=== PATIENT | male | born 1975 | race Caucasian/White ===

== ENCOUNTER → 2021-11-25 10:15 | Outpatient (BNVA) | payer SELFPAY | PROVIDERS: PCP Pediatrics; Visit Provider Physician Assistant Medical | DX: Z02.1 Encounter for pre-employment examination (principal) ==

== ENCOUNTER 2022-08-26 05:55 | Outpatient (REF) | payer OTHER, SELFPAY | END 2022-08-26 05:56 | disposition home or self-care (01) | LOC: HO.LAB 05:55 | PROVIDERS: PCP Pediatrics; Visit Provider Pediatrics | DX: Z00.00 Encounter for general adult medical examination without abnormal findings (principal); Z12.5 Encounter for screening for malignant neoplasm of prostate; Z20.2 Contact with and (suspected) exposure to infections with a predominantly sexual mode of transmission; R63.5 Abnormal weight gain | CPT/HCPCS: 36415; 80048; 80061; 80076; 81001; 84153; 84443; 85025; 86704; 86706; 86709; 86803; 87340 ==

== ENCOUNTER 2022-08-28 09:19 | Day surgery (SDC) | payer OTHER, SELFPAY ==
--- NOTE | 2022-08-27 09:25 | HO.ANESPROP2 ---
Documented by User: Lesly Kirkland NP 08/27/22 09:26 HPI - Anesthesia Eval Consult details Narrative: 47yo M for Colonoscopy [facility] Surgical History Surgical History (Updated 08/27/22 @ 07:41 by Sabi Green) H/O colonoscopy No pertinent past surgical history Social History Social History Patient Tobacco Use Status: Never used Tobacco Are you DNR?: No Advance Directives: No Advance Directives Information Provided: Yes Meds Allergies Allergy/AdvReac Type Severity Reaction Status Date / Time penicillin G Allergy Unknown facial Verified 05/19/18 00:00 flushing Penicillins [PENICILLINS] Allergy Unknown RASH Unverified 11/09/19 16:46 Sulfa (Sulfonamide Allergy Unknown upset Verified 05/19/18 00:00 Antibiotics) stomach, nightmares Home Medications Medication Instructions Recorded Confirmed Last Taken Type fluoxetine 08/27/22 08/27/22 Unknown History Exam Exam Date and Time: August 27, 2022924 Pertinent Lab Results Pertinent Lab Results: Laboratory Tests 08/26/22 08/26/22 06:11 06:11 WBC 6.5 Hgb 14.5 Hct 41.7 L Plt Count 267 Sodium 142 Potassium 4.0 Chloride 109 H Carbon Dioxide 24 BUN 17 H Creatinine 0.91 Assessment and Plan Assessment Anesthesia Assessment: Chart Reviewed Documented by User: Myles Ingram MD 08/28/22 11:19 [facility] Family History Family history of problems with anesthesia: No Surgical History Surgical History (Updated 08/27/22 @ 07:41 by Sabi Green) H/O colonoscopy No pertinent past surgical history History of Problems with Anesthesia: No Social History Social History Patient Tobacco Use Status: Never used Tobacco Are you DNR?: No Advance Directives: No Advance Directives Information Provided: Yes Meds Allergies Allergy/AdvReac Type Severity Reaction Status Date / Time penicillin G Allergy Unknown facial Verified 05/19/18 00:00 flushing Penicillins [PENICILLINS] Allergy Unknown RASH Unverified 11/09/19 16:46 Sulfa (Sulfonamide Allergy Unknown upset Verified 05/19/18 00:00 Antibiotics) stomach, nightmares Home Medications Medication Instructions Recorded Confirmed Last Taken Type fluoxetine 08/27/22 08/27/22 Unknown History Exam Airway Mallampati Class: I TM Dist: <=3cm Neck ROM: Full Loose/Missing/Broken Teeth: No Heart: ok Lungs: ok Assessment and Plan Assessment Anesthesia Assessment: Anesthesia Plan Discussed Final Anesthetic Review Family History of Problems with Anesthesia: No History of Problems with Anesthesia: No NPO: Yes ASA Class: I Final Preanesthetic Review: No Changes in Pt Med Stat, Meds/Allgs Chart Reviewed, Consent Obtained/Reviewed and Anes Risks/Benef Reviewed Patient Risk: Low Procedure Risk: Low Anesthetic Plan Anesthetic Plan: MAC: and Agree w/ Assess. and Plan Disposition: Standard PACU
[2022-08-28 09:24] VITALS: BP 135/82; PULSE 80; RESP 18; TEMP 36.1; O2SAT 97; BMI 28.6
--- NOTE | 2022-08-28 11:56 | PM.OP ---
Brief Operative Note Date of Service: 08/28/22 Pre-op diagnosis: Screening Post-op diagnosis: other (Diverticulosis, Internal hemorrhoids) Procedure: Colonoscopy to the cecum and TI Surgeon: Chino Amaya Anesthesia: MAC Was an Tire Man used for this Procedure?: No Estimated blood loss (mL): 0 Pathology: none sent Condition: stable Disposition: PACU
[2022-08-28 11:59] VITALS: BP 86/45; PULSE 68; RESP 19; TEMP 36.5; O2SAT 97
--- NOTE | 2022-08-28 12:12 | OP_ITS ---
DATE OF SERVICE: 08/28/2022 SURGEON: Chino Amaya MD INDICATIONS: The patient presents for evaluation of colorectal cancer screening and family history of colon cancer. Full consent has been obtained from him for this, including risks of bleeding and perforation. PREOPERATIVE DIAGNOSIS: Colorectal cancer screening and family history of colon cancer. POSTOPERATIVE DIAGNOSIS: PROCEDURE PERFORMED: Colonoscopy to the cecum and terminal ileum. ESTIMATED BLOOD LOSS: COMPLICATIONS: ANESTHESIA: Monitored anesthesia care. ASSISTANTS: SPECIMENS: POSTOPERATIVE DIAGNOSES: Colorectal cancer screening and family history of colon cancer, occasional sigmoid diverticulosis, and small internal hemorrhoids. DESCRIPTION OF PROCEDURE: The patient was placed in the left lateral decubitus position. The digital rectal exam revealed no abnormalities. The Olympus video pediatric colonoscope was entered into the rectum and advanced easily to the cecum. Once in the cecum, I did identify normal-appearing cecal pouch with appendiceal orifice and a normal-appearing ileocecal valve. The terminal ileum was cannulated and appeared normal. The scope was withdrawn back in the colon. The entire cecum and ileocecal valve appeared normal. The scope was slowly withdrawn assessing all mucosal surfaces carefully. Preparation was excellent. I did not visualize any sign of polyps, colitis, nor angiodysplasia. There were occasional diverticula in the sigmoid colon. In the rectum, scope was retroflexed visualizing small internal hemorrhoids, but no other pathology. The rectal mucosa appeared normal. The scope was straightened and withdrawn from the patient. He tolerated the procedure well and was returned to the recovery area in stable condition. IMPRESSION: 1. Occasional sigmoid diverticulosis. 2. Internal hemorrhoids. PLAN: Given his family history, I would recommend a followup colonoscopy in 5 years. He will otherwise see me on a p.r.n. basis. MD ROBERT Boss/PALOMA / [id number]
[2022-08-28 12:13] VITALS: BP 104/56; PULSE 72; RESP 16; TEMP 36.4; O2SAT 97
[2022-08-28 12:19] VITALS: BP 104/57; RESP 104; O2SAT 97
== END 2022-08-28 12:45 | disposition home or self-care (01) ==
PROVIDERS: PCP Pediatrics; Visit Provider Internal Medicine
PROC: 0DJD8ZZ Inspection of Lower Intestinal Tract, Via Natural or Artificial Opening Endoscopic (ICD-10-PCS; CPT 45378; principal; 2022-08-28 10:40)
DX: Z12.11 Encounter for screening for malignant neoplasm of colon (principal); Z80.0 Family history of malignant neoplasm of digestive organs; K57.30 Diverticulosis of large intestine without perforation or abscess without bleeding; K64.8 Other hemorrhoids; Z79.899 Other long term (current) drug therapy; Z88.0 Allergy status to penicillin; Z88.2 Allergy status to sulfonamides
CPT/HCPCS: 45378

== ENCOUNTER 2023-11-27 09:56 | Outpatient (REF) | payer BC, SELFPAY ==
[2023-11-27 10:23] LABS: MANUAL DIFF FLAG NO
[2023-11-27 10:50] LABS: Basophils Absolute Auto 0.1 X10*3/uL (0.0-0.2); Basophils Percent Auto 1.7 % (0-2); Eosinophils Absolute Auto 0.4 X10*3/uL (0.0-0.4); Eosinophils Percent Auto 5.7 % (0-4); Hematocrit 44.1 % (42.0-52.0); Imm Gran Abs Auto 0.01 X10*3/uL (0.00-0.03); Imm Gran Pct Auto 0.1 % (0.0-0.4); Lymphocytes Absolute Auto 3.1 X10*3/uL (1.2-4.9); Lymphocytes Percent Auto 44.2 % (20-40); Mean Corpuscular Hemoglobin 29.8 pg (27.0-33.0); Mean Corpuscular Volume 87.5 fL (80.0-98.0); Mean Platelet Volume 9.5 fL (9.4-12.4); Monocytes Absolute Auto 0.5 X10*3/uL (0.1-1.2); Monocytes Percent Auto 7.5 % (2-11); Neutrophils Absolute Auto 2.8 x10*3/uL (2.0-8.3); Neutrophils Percent Auto 40.8 % (45-73); Platelet Count 278 X10*3/uL (160-400); Red Blood Count 5.04 X10*6/uL (4.60-5.80); Red Cell Distribution Width 13.2 % (11.0-16.0)
[2023-11-27 12:04] LABS: Alanine Aminotransferase 76 U/L (0-40); Albumin Level 4.1 g/dL (3.5-5.0); Alkaline Phosphatase 97 U/L (39-117); Anion Gap 10 (12-20); Aspartate Amino Transferase 40 U/L (5-37); Bilirubin Direct 0.2 mg/dL (0.0-0.5); Bilirubin Total 0.4 mg/dL (0.0-1.0); Blood Urea Nitrogen 16 mg/dL (9-16); Calcium 9.4 mg/dL (8.4-10.2); Carbon Dioxide 28 mmol/L (22-29); Chloride 107 mmol/L (96-108); Cholesterol 205 mg/dL (<200); Estimated Glomerular Filt Rate > 60; Glucose Fasting 101 mg/dL (60-99); HDL Cholesterol 40 mg/dL (>40); LDL Cholesterol Calculated 143 mg/dL (<100); Potassium 4.5 mmol/L (3.3-5.1); Sodium 140 mmol/L (135-145); Total Protein 7.3 g/dL (6.5-8.0); Triglycerides 113 mg/dL (<150)
[2023-11-27 12:53] LABS: Prostate Specific Antigen 0.41 ng/mL (<0.05-4.0)
== END 2023-11-27 09:57 | disposition home or self-care (01) ==
LOC: HO.LAB 09:56
PROVIDERS: PCP Pediatrics; Visit Provider Pediatrics
DX: Z00.00 Encounter for general adult medical examination without abnormal findings (principal); Z23 Encounter for immunization; R35.1 Nocturia; Z12.5 Encounter for screening for malignant neoplasm of prostate
CPT/HCPCS: 36415; 80048; 80061; 80076; 84153; 85025

== ENCOUNTER 2023-12-04 08:32 | Outpatient (REF) | payer BC, SELFPAY ==
[2023-12-04 10:11] LABS: Iron 132 mcg/dL (45-160); Lipase 36 U/L (8-78); Percent Iron Saturation 41 % (15-50); Total Iron Binding Capacity 323 mcg/dL (228-428); Unsaturated Iron Binding 191 ug/dL
[2023-12-04 10:26] LABS: HBS Num1 0.18 mIU/mL (0-7.99); HBsAGNum1 0.36 S/CO (0.00-0.99); Hepatitis B Surface Antigen Negative (Negative); ~HepC Num1 0.13 S/CO (0.00-0.79); ~Hepatitis B Surface Antibody NONREACTIVE (Nonreactive); ~Hepatitis C Antibody Nonreactive (Nonreactive)
[2023-12-04 10:31] LABS: TSH reflex Free T4 2.74 uIU/mL (0.32-4.0)
[2023-12-04 11:16] LABS: Hepatitis A Antibody IgM 0.23 Index (0-0.79); ~Hepatitis A Antibody IgM Nonreactive (Nonreactive)
== END 2023-12-04 08:33 | disposition home or self-care (01) ==
LOC: HO.LAB 08:32
PROVIDERS: PCP Pediatrics; Visit Provider Pediatrics
DX: R74.01 Elevation of levels of liver transaminase levels (principal)
CPT/HCPCS: 36415; 83540; 83690; 84443; 86706; 86709; 86803; 87340

== ENCOUNTER 2023-12-10 08:40 | Outpatient (REF) | payer BC, SELFPAY ==
--- NOTE | ~2023-12-10 | US_ITS ---
EXAMINATION: US ABDOMEN COMPLETE CLINICAL INFORMATION: Elevated liver transaminases. COMPARISON: Ultrasound dated June 28, 2006 TECHNIQUE: Real-time imaging of the abdominal viscera using grayscale and color Doppler technique.. FINDINGS: Submitted for interpretation on January 25, 2024. Liver has coarse echotexture. There is no measurements. No gross solid or cystic lesion. The main portal vein is patent with normal hepatopedal flow direction. Gallbladder is fluid-filled. No pericholecystic fluid collection or gallbladder wall thickening. Common bile duct measures 3 mm. No peripancreatic fluid collection. Right kidney measures 10 cm. Normal echotexture. Normal renal cortical thickness. No hydronephrosis. No solid or cystic lesion. Normal flow on color Doppler interrogation of the renal hilum. Left kidney measures 10 cm. Normal echotexture. Normal renal cortical thickness. No hydronephrosis. No solid or cystic lesion. Normal flow on color Doppler interrogation of the renal hilum. Spleen measures 10 cm. No ascites. US/US abdomen complete IMPRESSION: Limited evaluation of the liver. Recommend dedicated IV contrast enhanced MRI. No cholelithiasis. No hydronephrosis. No ascites. Electronically signed by: Skinny Abdul MD 01/25/2024 03:47 PM EST
== END 2023-12-10 08:41 | disposition home or self-care (01) ==
LOC: HO.US 08:40
PROVIDERS: PCP Pediatrics; Visit Provider Pediatrics
DX: R74.01 Elevation of levels of liver transaminase levels (principal)
CPT/HCPCS: 76700

== ENCOUNTER → 2023-12-10 08:41 | Outpatient (BNV) | payer BC, SELFPAY | PROVIDERS: PCP Pediatrics; Visit Provider Radiology Diagnostic Radiology | DX: R74.01 Elevation of levels of liver transaminase levels (principal) | CPT/HCPCS: 76700 ==

== ENCOUNTER 2024-02-05 09:01 | Outpatient (REF) | payer BC, SELFPAY ==
--- OUTSIDE RECORDS SUMMARY | 2024-02-05 09:03 | XMS_ITS ---
Author Organization [facility] Address [address] [place] [address] Care Team Providers Care State Assessed Properties Director Name Role Phone Edis ALEXANDER, Chelsea Primary Care Provider Chino Parrish Unavailable [phone] REASON FOR VISIT screening,fam hx colon ca PROBLEMS Problem Type ICD Code Onset Dates Problem Status W/U Status Risk SNOMED Code Notes Problem Diverticulosis of large intestine without perforation or abscess without bleeding (K57.30) Active confirmed Diverticul ar disease of colon (154757441) Encounters Encounter Location Date Provider Diagnosis [facility] Outpatient [address] [place], [place] [id number] 08/28/2022 Chino Amaya Encounter for scre ening colonoscopy Z12.11 ; Family history of colon cancer Z80.0 ; Diverticulosis of large intestine without perforation or abscess without bleeding K57.30 and Other hemorrhoids K64.8 ASSESSMENTS Encounter Date Diagnosis Assessment Notes Treatment Notes Treatment Clinical Notes 08/28/2022 Encounter for screening colonoscopy (ICD-10 - Z12.11) 08/28/2022 Family history of colon cancer (ICD-10 - Z80.0) 08/28/2022 Diverticulosis of large intestine without perforation or abscess without bleeding (ICD-10 - K57.30) 08/28/2022 Other hemorrhoids (ICD-10 - K64.8) PLAN OF TREATMENT Next Appt Details Follow Up: prn, Reason:
--- OUTSIDE RECORDS SUMMARY | 2024-02-05 09:04 | XMS_ITS | Patient Health Record ---
Author Organization [facility] Address [address] [place] [address] Care Team Providers Care Postal Clerk Name Role Phone Chelsea Randhawa MD Primary Care Provider Chino Parrish [phone] ALLERGIES Allergen (clinical drug ingredient) Drug/Non Drug Allergy documented on EMR Reaction Allergy Type Onset Date Status Penicillin Unknown Drug Allergy Active REASON FOR REFERRAL No Information SOCIAL HISTORY Tobacco Use: Social History Observation Description Date Details (start date - stop date) Never Smoker NA - NA Sex Assigned At : Social History Observation Description Sex Assigned At Unknown Tobacco Use/Smoking Question Answer Notes Patient is a nonsmoker Alcohol Screen Question Answer Notes Did you have a drink containing alcohol in the p ast year? No Points 0 Interpretation Negative PROBLEMS Problem Type ICD Code Onset Dates Problem Status W/U Status Risk SNOMED Code Notes Problem Family history of colon cancer (Z80.0) Active confirmed 846328618 Problem Encounter for screening for malignant neoplasm of colon (Z12.11) Active confirmed 268666498 Problem Pre-procedural examination (Z01.818) Active confirmed 585161802 Problem Diverticulosis of large intestine without perforation or abscess without bleeding (K57.30) Active confirmed Diverticul ar disease of colon (857406260) PLAN OF TREATMENT Future Test Test Name Order Date COLONOSCOPY 03/24/2017 COLONOSCOPY 07/02/2022 Insurance Providers Payer Name Payer Address Payer Phone Subscriber Number Group Number Insured Name Patient Relationship to Insured Coverage Start Date Coverage End Date [facility] [address] [place] [phone] [id number] SKY RAY Self - patient is the insured MEDICAL (GENERAL) HISTORY Medical History History ICD Code Denies MD,DM,CVA,Lung disease,renal dise ase Anxiety Negative screening colonoscopy in 2017 Surgical History Surgery Date(Month/Year)
[2024-02-11 11:04] LABS: Testosterone, Free 95.1 pg/mL (35.0-155.0); Testosterone, Total 606 ng/dL (250-1100)
== END 2024-02-05 09:02 | disposition home or self-care (01) ==
LOC: HO.LAB 09:01
PROVIDERS: PCP Pediatrics; Visit Provider Pediatrics
DX: R53.82 Chronic fatigue, unspecified (principal)
CPT/HCPCS: 36415; 84402; 84403

== ENCOUNTER 2024-02-12 13:39 | Outpatient (REF) | payer BC, SELFPAY ==
--- OUTSIDE RECORDS SUMMARY | 2024-02-12 13:42 | XMS_ITS | Patient Health Record ---
Author Organization [facility] Address [address] [place] [address] Care Team Providers Care Hvac Maintenance Technician Name Role Phone Chelsea Randhawa MD Primary Care Provider Chino Parrish [phone] ALLERGIES Allergen (clinical drug ingredient) Drug/Non Drug [...] history of colon cancer (Z80.0) Active confirmed 309923005 Problem Encounter for screening for malignant neoplasm of colon (Z12.11) Active confirmed 400262631 Problem Pre-procedural examination (Z01.818) Active confirmed 545126301 Problem Diverticulosis of large intestine without perforation or abscess without bleeding (K57.30) Active confirmed Diverticul ar disease of colon (333072391) PLAN OF TREATMENT Future Test Test Name Order Date COLONOSCOPY 03/24/2017 COLONOSCOPY 07/02/2022 Insurance Providers Payer Name Payer Address Payer Phone Subscriber Number Group Number Insured Name Patient Relationship to Insured Coverage Start Date Coverage End Date [facility] [address] [place] [phone] [id number] SKY RAY Self - patient is the insured MEDICAL (GENERAL) HISTORY Medical History History ICD Code Denies [place],DM,CVA,Lung disease,renal dise ase Anxiety Negative screening colonoscopy in 2017 Surgical History Surgery Date(Month/Year)
--- OUTSIDE RECORDS SUMMARY | 2024-02-12 13:42 | XMS_ITS ---
Author Organization [facility] Address [address] [place] [address] Care Team Providers Care Sheriff Detective Name Role Phone Edis ALEXANDER, Chelsea Primary Care Provider Chino Parrish Unavailable [phone] REASON FOR VISIT screening,fam hx colon ca PROBLEMS Problem Type ICD Code Onset Dates Problem Status W/U Status Risk SNOMED Code Notes Problem Diverticulosis of large intestine without perforation or abscess without bleeding (K57.30) Active confirmed Diverticul ar disease of colon (979006817) Encounters Encounter Location Date Provider Diagnosis [facility] Outpatient [address], [place] [id number] 08/28/2022 Chino Amaya Encounter for scre ening [...]
== END 2024-02-12 13:40 | disposition home or self-care (01) ==
LOC: HO.MRI 13:39
PROVIDERS: PCP Pediatrics; Visit Provider Pediatrics
DX: Z13.89 Encounter for screening for other disorder (principal)

== ENCOUNTER 2024-06-06 14:41 | Emergency (ER) | payer BC, SELFPAY ==
[2024-06-06 15:22] VITALS: BP 131/85; PULSE 107; RESP 16; TEMP 35.8; O2SAT 96; BMI 32.8
--- NOTE | 2024-06-06 15:25 | ED_ITS ---
HPI - General Adult General Chief complaint: Allergic Reaction Stated complaint: Rash both arms Time Seen by Provider: 06/06/24 15:23 Source: patient Mode of arrival: ambulatory Limitations: no limitations History of Present Illness ED Provider: Dago Peterson HPI narrative: 49 yold male with no pmh presents to the ED for allergic reaction that began at work. 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 She denies any lip swelling, tongue swelling, chest pain, shortness of breath, or sensation of throat closing. patient states no fever or chills. Related Data Home Medications ?Medication ?Instructions ?Recorded ?Confirmed fluoxetine 08/27/22 08/27/22 Previous Rx's ?Medication ?Instructions ?Recorded diphenhydramine HCl 25 mg capsule 25 mg PO TID PRN allergic reaction 06/06/24 (Benadryl) #21 caps famotidine 40 mg tablet (Pepcid) 40 mg PO DAILY 7 days #7 tabs 06/06/24 prednisone 20 mg tablet 40 mg (2 x 20 mg) PO DAILY 5 days 06/06/24 #10 tabs Allergies Allergy/AdvReac Type Severity Reaction Status Date / Time penicillin G Allergy Unknown facial Verified 06/06/24 15:23 flushing Penicillins [PENICILLINS] Allergy Unknown RASH Verified 06/06/24 15:23 Sulfa (Sulfonamide Allergy Unknown upset Verified 06/06/24 15:23 Antibiotics) stomach, nightmares Review of Systems 2 Review of Systems: generalized hives Yes all other systems are reviewed and are negative PMFSH Past Medical History Surgical History (Updated 08/27/22 @ 07:41 by Sabi Green RN) H/O colonoscopy No pertinent past surgical history Social History Social History Patient Tobacco Use Status: Never used Tobacco Advance Directives: No Advance Directives Information Provided: Yes Physical Exam ED Vital Signs: Vital Signs - 24 hr 06/06/24 15:22 06/06/24 18:28 Temperature 96.5 F L 96.5 F L Pulse Rate 107 H 107 H Respiratory Rate 16 16 Blood Pressure 131/85 131/85 Pulse Oximetry 96 96 Oxygen Delivery Method Room Air Room Air BMI result Body Mass Index 32.8 Const General: cooperative, healthy appearing, comfortable, no acute distress, well developed, alert, awake and Physically active Orientation/consciousness: patient oriented x3 HENMT Other: negative for lip swelling, tongue swelling, or uvula swelling. Head: Yes normal to inspection, Yes No palpable skull fracture present, Yes normocephalic and Yes atraumatic Head images: 2 1. positive for uticaria 2. positive for uticaria Throat: Yes posterior oropharynx normal, Yes tonsils normal and Yes uvula midline Eyes General: appearance normal, both eyes and all related structures Neck Neck: Yes normal visual inspection, Yes full ROM, Yes no lymphadenopathy, Yes no meningeal signs, Yes trachea midline, Yes supple, No anterior neck swelling and No tender Neck images: 2 1. positive for hives, uticaria Resp Effort & Inspection: normal respiratory effort and able to speak in complete sentences Auscultation: clear to auscultation bilaterally Cardio Jugular venous distension: no JVD Heart sounds: S1 normal heart sound present and S2 normal heart sound present GI Inspection: Yes normal to inspection Palpation (GI): Soft to palpation, not firm, nontender and no guarding Abdomen image: 2 1. generalived uticaria hives General: Yes no CVA tenderness Back/Spine/Pelvis Back: no CVA tenderness and No back tenderness Skin Other: positive for generalized hives. General skin exam: no rashes or lesions noted, elasticity normal and turgor normal Neuro General: patient oriented x3, gait normal, tone normal, moves all extremities and no meningeal signs Cranial nerves: Yes CN's II-XII intact bilaterally Extrem General: Yes normal to inspection, Yes full ROM and Yes capillary refill normal Shoulder/upper arm images: 2 1. positive for hives/uticaria 2. positive for hives/uticaria Upper/lower leg/hip images: 2 1. positive for hives/uticaria 2. positive for hives/uticaria Psych Appearance: grossly normal, well kempt and not disheveled Course Course Course Narrative: RME: 49-year-old male with known allergies of penicillin and sulfa medication presents to ED for generalized rash/hives. 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 Patient denies any swelling of lips were swelling or tongue. Patient denies any drooling chest pain or shortness of breath. Presently generalized hives. Negative for lip swelling, tongue swelling, or uvular swelling. Lungs are clear. Patient is speaking in full sentences. Benadryl Pepcid Solu-Medrol ordered. Medications Administered Discontinued Medications Generic Name Dose Route Start Last Admin Trade Name Magnus PRN Reason Stop Dose Admin Diphenhydramine HCl 50 mg 06/06/24 15:23 06/06/24 15:44 Diphenhydramine Hcl 50 Mg/Ml Vial IVPUSH 06/06/24 15:24 50 mg ONCE ONE Administration Famotidine 20 mg 06/06/24 15:23 06/06/24 15:42 Famotidine/Pf 20 Mg/2 Ml Vial IVPUSH 06/06/24 15:24 20 mg ONCE ONE Administration Methylprednisolone Sodium Succinate 125 mg 06/06/24 15:23 06/06/24 15:42 Methylprednisolone Sod Succ 125 Mg/2 Ml Vial IVPUSH 06/06/24 15:24 125 mg ONCE ONE Administration Medical Decision Making Medical Decision Making MDM Narrative: 49 yold male presents to the ED for allergic reaction that occurred while at work. patient polishes at work does not know if there is any new substance in the liquid to [facility] that caused his reaction. Patient presented with generalized hives. patient has no signs of anaphylaxis reactions. no lip sweling, drooling, tonuse swlling, changes in voices, chest pain, or sohrtness of breath. Patient given IV benadryl, solumedrol, and pepcid. Generalized hives resolved. Patient explaeind worrisome signs and informed to return to the ED immmediately. not suspecting anyphylaxis, hans pedro syndrome, cellulitits, necrotizing fascitits, or any other life threatening eitoliies. Differential Diagnosis Differential Diagnoses: The differential diagnosis associated with the presentation includes (allergic reaction, anyphylaxis, contact dermatitis) Admission/Observation Consideration of admission/observation: Escalation of care including admission/observation considered Independent Historian Clinical information obtained from an independent historian. History obtained from or confirmed by: Other (patient) Prescription Management I considered prescription management with: Other (Benadryl, prednisone, Pepcid) Discharge Plan Discharge Clinical Impression: Allergic reaction Patient Disposition: Home, Self-Care Instructions: General Allergic Reaction (ED) Additional Instructions: Recommend follow up with primary care provider. You will need allergy patch test by your PCP. Return to the ED immediately for any drooling, change in voice, swelling of lips/tongue, sensation of throat closing, worsening rash, fever, chills, skin peeling, chest pain, shortness of breath, or any other concerning symptoms. Prescriptions: New prednisone 20 mg tablet 40 mg PO DAILY 5 Days Qty: 10 0RF diphenhydramine HCl [Benadryl] 25 mg capsule 25 mg PO TID PRN (Reason: allergic reaction) Qty: 21 0RF famotidine [Pepcid] 40 mg tablet 40 mg PO DAILY 7 Days Qty: 7 0RF No Action fluoxetine Stand Alone Forms: Work/School Release Interventions: ED Discharge Assessment Last Done: 06/06/24 18:28 Discharge Date/Time: 06/06/24 18:28 Print Language: Bengali
[2024-06-06] MEDS: Famotidine/PF 20 MG/2 ML VIAL IVPUSH (15:42)
[2024-06-06] MEDS: methylPREDNISolone Sod Succ 125 MG/2 ML VIAL IVPUSH (15:42)
[2024-06-06] MEDS: diphenhydrAMINE HCL 50 MG/ML VIAL IVPUSH (15:44)
[2024-06-06 18:28] VITALS: BP 131/85; PULSE 107; RESP 16; TEMP 35.8; O2SAT 96
--- OUTSIDE RECORDS SUMMARY | 2024-06-06 18:51 | XMS_ITS | Clinical Summary ---
Author Organization [facility] Address [address] [place] [address] Phone Care Team Providers Care Duster Tender Name Role Phone Chelsea Randhawa MD Primary Care Provider [phone] Allergies Active Allergy Reactions Criticality Noted Date Comments Penicillins 03/02/2024 Social History Tobacco Use Types Packs/Day Years Used Date Smoking Tobacco: Never Assessed Sex and Gender Information Value Date Recorded Sex Assigned at Not on file Legal Sex Male 1:32 PM EDT Gender Identity Not on file Sexual Orientation Not on file Last Filed Vital Signs Vital Sign Reading Time Taken Comments Blood Pressure - - Pulse - - Temperature - - Respiratory Rate - - Oxygen Saturation - - Inhaled Oxygen Concentration - - Weight 93 kg (205 lb) 03/02/2024 2:55 PM EST Height 167.6 cm (5' 6 ) 03/02/2024 2:55 PM EST Body Mass Index 33.09 03/02/2024 2:55 PM EST Plan of Treatment Health Maintenance Due Date Last Done Comments DTaP,Tdap,and Td Vaccines (2 - Td or Tdap) 01/26/2021 01/26/2011 Pneumococcal Vaccine: 50+ Years (1 of 1 - PCV) 2023 Colorectal Cancer Screening: Colonoscopy 12/16/2023 HIV Screening 12/16/2023 Social Influencers of Health Screening 12/16/2023 Zoster Vaccines (2 of 2) 01/18/2024 11/23/2023 Hepatitis B Vaccines (3 of 3 - 19+ 3-dose series) 06/09/2024 01/25/2024, 12/10/2023 Depression Screening 11/22/2024 11/23/2023 Cholesterol Screening (Lipid Panel) 11/26/2028 11/27/2023 Influenza Vaccine Completed 11/23/2023, , 11/24/2019, Additional history exists Hepatitis C Screening Completed 12/04/2023 COVID-19 Vaccine Completed 01/25/2024, , 11/18/2020, Additional history exists HIB Vaccines Aged Out No longer eligi ble based on patient's age to complete this topic HPV Vaccines Aged Out No longer eligi ble based on patient's age to complete this topic Hepatitis A Vaccines Aged Out No long er eligible based on patient's age to complete this topic IPV Vaccines Aged Out No longer eligi ble based on patient's age to complete this topic MMR Vaccines Aged Out No longer eligi ble based on patient's age to complete this topic Meningococcal ACWY Vaccine Aged Out N o longer eligible based on patient's age to complete this topic Meningococcal B Vaccine Aged Out No l onger eligible based on patient's age to complete this topic Pneumococcal Vaccine: Pediatrics (0 to 5 Years) and At-Risk Patients (6 to 64 Years) Aged Out No longer eligible based on patient's age to complete this topic RSV Immunization Patients Under 20 months Aged Out No longer eligible based on patient's age to complete this topic Varicella Vaccines Aged Out No longer eligible based on patient's age to complete this topic Insurance Care Teams Duster Tender Relationship Specialty Start Date End Date Chelsea Randhawa MD [address] [place] [id number] PCP - General 11/26/23
--- OUTSIDE RECORDS SUMMARY | 2024-06-06 18:51 | XMS_ITS | Patient Health Record ---
Author Organization [facility] Address [address] [place] [address] Care Team Providers Care Telephoner Name Role Phone Chelsea Randhawa MD Primary Care Provider Chino Parrish [phone] Allergies Allergen (clinical drug ingredient) Drug/Non Drug Allergy documented on EMR Reaction Allergy Type Onset Date Status Penicillin Unknown Drug Allergy Active Reason For Referral No Information Social History Tobacco Use: Social History Observation Description Date Details (start date - stop date) Never Smoker NA - NA Tobacco Use/Smoking Question Answer Notes Patient is a nonsmoker Alcohol Screen Question Answer Notes Did you have a drink containing alcohol in the p ast year? No Points 0 Interpretation Negative Section Notes: Nonsmoker; no sig alcohol Nonsmoker; no sig alcohol Problems Problem Type SNOMED Code ICD Code Onset Dates Problem Status W/U Status Risk Notes Problem 698471334 Encounter for screening for malignant neoplasm of colon (Z12.11) Active confirmed Problem Diverticular disease of colon (944934648) Diverticulosis of large intestine without perforation or abscess without bleeding (K57.30) Active confirmed Problem 381830036 Family history o f colon cancer (Z80.0) Active confirmed Problem 412388146 Pre-procedural examination (Z01.818) Active confirmed Plan Of Treatment Future Test Test Name Order Date COLONOSCOPY 03/24/2017 COLONOSCOPY 07/02/2022 Insurance Providers Payer Name Payer Address Payer Phone Subscriber Number Group Number Insured Name Patient Relationship to Insured Coverage Start Date Coverage End Date [facility] [address] [place] [phone] [id number] SKY RAY Self - patient is the insured Medical (General) History Medical History History ICD Code Denies NC,DM,CVA,Lung disease,renal dise ase Anxiety Negative screening colonoscopy in 2017 Surgical History Surgery Date(Month/Year)
== END 2024-06-06 18:28 | disposition home or self-care (01) ==
PROVIDERS: Emergency Provider Emergency Medicine; PCP Pediatrics
DX: T78.40XA Allergy, unspecified, initial encounter (principal); X58.XXXA Exposure to other specified factors, initial encounter
CPT/HCPCS: 96374; 96375; 99282; 99284; J1200; J2919

== ENCOUNTER 2024-10-15 10:32 | Emergency (ER) | payer BC, SELFPAY ==
[2024-10-15 10:35] VITALS: BP 136/63; PULSE 87; RESP 16; TEMP 36.3; O2SAT 95; BMI 34.1
--- NOTE | 2024-10-15 11:28 | ED_ITS ---
HPI - General Adult General Chief complaint: General Medical Stated complaint: Rash around body Time Seen by Provider: 10/15/24 11:07 Source: patient, RN notes reviewed and old records reviewed Mode of arrival: ambulatory Limitations: no limitations History of Present Illness ED Provider: Manish BELLA narrative: 49-year-old male presents for evaluation of an itchy rash. His symptoms started around 10:00 a.m. today, about 1 and a 1/2 hours prior to my evaluation. He reports that his symptoms started shortly after he drank a shot of filemon with cayenne pepper From over he has had a similar rash in the past that was not related to filemon or cayenne pepper. The patient took Benadryl 100 mg prior to kill [facility]. He reports that the rash is still present but the itching has subsided Related Data Home Medications ?Medication ?Instructions ?Recorded ?Confirmed fluoxetine 08/27/22 08/27/22 Previous Rx's ?Medication ?Instructions ?Recorded diphenhydramine HCl 25 mg capsule 25 mg PO TID PRN all ergic reaction 06/06/24 (Benadryl) #21 caps famotidine 40 mg tablet (Pepcid) 40 mg PO DAILY 7 days #7 tabs 06/06/24 prednisone 20 mg tablet 40 mg (2 x 20 mg) PO DAILY 5 days 06/06/24 #10 tabs prednisone 20 mg tablet 40 mg (2 x 20 mg) PO DAILY # 10 tabs 10/15/24 Allergies Allergy/AdvReac Type Severity Reaction Status Date / Time penicillin G Allergy Unknown facial Verified 10/15/24 10:38 flushing Penicillins (PENICILLINS) Allergy Unknown RASH Verified 10/15/24 10:38 Sulfa (Sulfonamide Allergy Unknown upset Verified 10/15/24 10:38 Antibiotics) stomach, nightmares Review of Systems 2 Constitutional: Constitutional: Denies body ache(s), Denies chills, Denies fever(s) and Denies headache(s) ENT: Denies headache(s), Denies sore throat, Denies throat swelling and Denies tongue swelling Musculoskeletal: Musculoskeletal: Denies back pain Integumentary/Breasts: Skin/Breast: Reports pruritus and Reports rash Neurologic: Denies headache(s) Allergic/Immunologic: Allergic/Immunologic: Denies throat swelling and Denies tongue swelling PMFSH Past Medical History Surgical History (Updated 08/27/22 @ 07:41 by Sabi Cedeno RN) H/O colonoscopy No pertinent past surgical history Social History Social History Patient Tobacco Use Status: Never used Tobacco Advance Directives: No Advance Directives Information Provided: No Do you have a plan to hurt others: No Plan Physical Exam ED Vital Signs: Vital Signs - 24 hr 10/15/24 10:35 Temperature 97.4 F Pulse Rate 87 Respiratory Rate 16 Blood Pressure 136/63 Pulse Oximetry 95 Oxygen Delivery Method Room Air BMI result Body Mass Index 34.1 Const General: healthy appearing, comfortable, no acute distress, alert and awake Nutritional Appearance: well nourished Orientation/consciousness: patient oriented x3 HENMT Head: Yes normocephalic and Yes atraumatic Eyes Eyelids: Yes eyelids normal Conjunctivae: conjunctivae normal Sclerae: sclerae normal Corneas: corneas normal Pupils: Equal, round and reactive pupils present EOM: EOMs intact bilaterally Neck Neck: Yes full ROM Resp Effort & Inspection: normal respiratory effort, able to speak in complete sentences, no audible wheezes and not labored Auscultation: clear to auscultation bilaterally Cardio Rate: regular rate Rhythm: regular rhythm Skin Other: There was a diffuse, classic urticarial rash involving the phone and all extremities. There was no involvement of the face. No perioral edema General skin exam: elasticity normal Neuro General: patient oriented x3 Cranial nerves: Yes CN's II-XII intact bilaterally, Yes Equal, round and reactive pupils present and Yes Bilaterally intact EOM present Cognition (Neuro): normal cognition Extrem Other: Moving all extremities well without any obvious deformities Medications Administered Discontinued Medications Generic Name Dose Route Start Last Admin Trade Name Percyq PRN Reason Stop Dose Admin Famotidine 20 mg 10/15/24 11:27 10/15/24 11:48 Famotidine 20 Mg Tablet PO 10/15/24 11:28 20 mg ONCE ONE Administration Prednisone 40 mg 10/15/24 11:27 10/15/24 11:48 Prednisone 20 Mg Tablet PO 10/15/24 11:28 40 mg ONCE ONE Administration Medical Decision Making Medical Decision Making [facility] Narrative: 49-year-old male presents for evaluation of an urticarial rash. There was no evidence of anaphylaxis. His symptoms started about 2 hours ago. He self- medicated with Benadryl and his itching has improved but he still has the urticaria. We will treat with Pepcid and prednisone. The patient was encouraged to follow up with an back tender pulp drier as this is not the 1st time he has had this type of reaction. Differential Diagnosis Differential Diagnoses: The differential diagnosis associated with the presentation includes Urticaria Allergic reaction Anaphylaxis Dermatitis Discharge Plan Discharge Clinical Impression: Urticaria Patient Disposition: Home, Self-Care Instructions: Urticaria (ED) Additional Instructions: Your rash is a classic allergic reaction. I recommend that you see an back tender pulp drier to figure out what inguinal allergic to. Take Benadryl 50 mg every 6 hours as needed for itching and rash. Take prednisone 40 mg daily for the next 5 days In his possible that you are allergic to the filemon and cayenne pepper, but if you have had this rash in the past you likely have another allergy as well Prescriptions: New prednisone 20 mg tablet 40 mg PO DAILY Qty: 10 0RF No Action prednisone 20 mg tablet 40 mg PO DAILY 5 Days Qty: 10 0RF diphenhydramine HCl [Benadryl] 25 mg capsule 25 mg PO TID PRN (Reason: allergic reaction) Qty: 21 0RF famotidine [Pepcid] 40 mg tablet 40 mg PO DAILY 7 Days Qty: 7 0RF fluoxetine Referrals: Chelsea Brock MD [Physician, Allergy & Immunology] Referral Note: urticaria Stand Alone Forms: Work/School Release Discharge Date/Time: 10/15/24 12:26 Print Language: Nepali
--- OUTSIDE RECORDS SUMMARY | 2024-10-15 11:53 | XMS_ITS | Clinical Summary ---
Author Organization [employer] Address [address] [facility] [address] [place] [address] Care Team Providers Care River Boat Captain Name Role Phone Chelsea Randhawa MD Primary Care Provider [phone] Allergies Active Allergy Reactions Criticality Noted Date Comments Penicillin G Anaphylaxis High 07/02/2022 Penicillin V Hives Medications No known medications Active Problems No known active problems Immunizations Immunization Administration Dates Next Due Hep B, adult 01/25/2024 HepB-CpG 12/10/2023 Influenza Injectable Quadriv alant Preservative Free IIV4 MDCK 11/24/2019 Influenza injectable quadrivalent preservative f ree 11/13/2020,11/25/2016 Influenza, Split (incl. purified surface antigen ) 01/26/2011 Influenza, seasonal, injectable, preservative fr ee 11/23/2023 Pfizer Covid-19 Vaccine 12+ 01/25/2024 Pfizer Covid-19 Vaccine 12+ Bivalent 05/18/2022 Tdap 01/26/2011 Zoster, Recombinant 11/23/2023 Social History Tobacco Use Types Packs/Day Years Used Date Smoking Tobacco: Never Passive Smoke Exposure: Never Smokeless Tobacco: Never Tobacco Cessation:Counseling Given: Not Answered Depression Answer Date Recorded Patient Health Questionnaire-9 Score 0 11/23/2023 Patient Health Questionnaire-9 Score 0 11/23/2023 Last PHQ-9: Questionnaire Data Not on file 1 Housing Stability Answer Date Recorded What is your housing situation today? I have [place] 11/23/[address] you li ve. Do you have problems with any of the following? None of the above 11/23/2023 Food Insecurity Answer Date Recorded Within the past 12 months, y ou worried that your food would run out before you got money to buy more: Never True 11/23/2023 Within the past 12 months,th e food you bought just didn't last and you didn't have enough money to get more: Never True 02/2023 Transportation Answer Date Recorded In the past 12 months, has l ack of transportation kept you from medical appts, meetings, work or from getting things needed for daily living? No 11/23/2023 Utilities Answer Date Recorded In the past 12 months, has t he electric, gas, oil or water company threatened to shut off services in your home? No 11/23/2023 Depression Answer Date Recorded Patient Health Questionnaire-2 Score 0 11/23/2023 Internet Access Answer Date Recorded Internet Access Q1 Yes 11/23/2023 Internet Access Q2 Not on file 11/23/2023 Sex and Gender Information Value Date Recorded Sex Assigned at Male 12/22/2021 10:16 AM EDT Legal Sex Male 10:16 AM EDT Gender Identity Male 05/18/2022 1:30 PM EDT Sexual Orientation Don't know 05/18/2022 1: 30 PM EDT Last Filed Vital Signs Vital Sign Reading Time Taken Comments Blood Pressure 125/80 01/25/2024 11:32 AM EST Pulse 86 01/25/2024 11:32 AM EST Temperature 36.4 C (97.5 F) 01/25/2024 11:32 AM EST Respiratory Rate 20 01/25/2024 11:32 AM EST Oxygen Saturation 97% 01/25/2024 11:32 AM EST Inhaled Oxygen Concentration - - Weight 93 kg (205 lb) 01/25/2024 11:32 AM EST Height 165.1 cm (5' 5 ) 01/25/2024 11:32 AM EST Body Mass Index 34.11 01/25/2024 11:32 AM EST Plan of Treatment Health Maintenance Due Date Last Done Comments CT Colonography 1973 FIT DNA/Cologuard 1973 FIT 1973 FOBT 1973 HIV Screening 1973 Sigmoidoscopy 1973 Disability Screening 1973 Family Planning (PISQ) 02/25/1988 DTaP/Tdap/Td Vaccines (2 - Td or Tdap) 01/26/2021 01/26/2011 Pneumococcal Vaccine: 50+ Years (1 of 1 - PCV) 2023 Zoster Vaccines (2 of 2) 01/18/2024 11/23/2023 Hepatitis B Vaccines (3 of 3 - 19+ 3-dose series) 06/09/2024 01/25/2024, 12/10/2023 Influenza Vaccine (#1) 2024 , 11/13/2020, 11/24/2019, Additional history exists Alcohol/Substance Use Screening 11/22/2024 11/23/2023 Depression Screening 11/22/2024 11/23/2023, 11/23/19 24 SDOH Screening 11/22/2024 11/23/2023 Tobacco Screening 01/24/2025 01/25/2024 Colonoscopy 09/08/2027 09/07/2022 Colorectal Cancer Screening 09/08/2027 Lipid Panel 11/26/2028 11/27/2023, 08/26/2022 RSV Patients and Patients Aged 60 years or older (1 - 1-dose 75+ series) 02/25/2048 Hepatitis C Screening Completed 12/04/2023, 023 COVID-19 Vaccine Completed 01/25/2024, , 11/18/2020, Additional [...] patient's age to complete this topic Meningococcal Vaccine Aged Out No rekha jemima eligible based on patient's age to complete this topic RSV under 20 months Aged Out No longe r eligible based on patient's age to complete this topic Rotavirus Vaccines Aged Out No longer eligible based on patient's age to complete this topic Procedures Procedure Name Priority Date/Time Associated Diagnosis Comments HEPATITIS C AB W/REFL TO HCV RNA, QN, PCR Routine 12/04/2023 8:49 AM EDT Transaminitis LIPID PANEL, STANDARD Routine 11/27/2023 10:21 AM EDT Encounter for immunization Routine medical exam HM COLONOSCOPY Routine 09/07/2022 from Last 3 Months or Most Recently Relevant to Health Maintenance Results * Hepatitis C Antibody with Reflex to HCV, RNA, Quantitative, Real-Time PCR (12/04/2023 8:49 AM EDT) Hepatitis C Antibody Nonreactive Nonreactive [facility] Comment:Antibodies to HCV no t detected; does not exclude early acuteHCV infection. Blood Venous blood specimen / Unknown 12/04/2023 8:49 AM EDT 12/04/2023 8:49 AM EDT us Chelsea Randhawa MD LAB BLOOD ORDERABLES Final Re sult [facility] [address] [place] [phone] * (ABNORMAL) Lipid Panel, Standard (11/27/2023 10:21 AM EDT) Triglycerides 113 <150 mg/dL [facility] Comment:Desirable Triglyceri de: less than 150 mg/dLBorderline High Triglyceride 150-199 mg/dLHigh Triglyceride: 200-499 mg/dLVery High Triglyceride: greater than or equal to 5OO mg/dL Cholesterol 205(H) <200 mg/dL [facility] Comment:Desirable Cholestero l: less than 200 mg/dLBorderline High Cholesterol: 200-239 mg/dLHigh Cholesterol: greater than 239 mg/dL LDL Cholesterol Calculated 143(H) <100 mg/dL [facility] Comment:Desirable LDL: less than 100 mg/dLNear Optimal/Above Optimal LDL: 110- 129 mg/dLBorderline High LDL: 130-159 mg/dLHigh LDL: 160-189 mg/dLVery High LDL: greater than or equal to 190 mg/dL HDL Cholesterol 40(L) >40 mg/dL [facility] Comment:Desirable HDL: great er than 40 mg/dL Note: This HDL assay may give artificially low results in patients with liver disease. Blood Venous blood specimen / Unknown 11/27/2023 10:21 AM EDT 11/27/2023 10:21 AM EDT us Chelsea Randhawa MD LAB BLOOD ORDERABLES Final Re sult [facility] [address] [place] [phone] * (ABNORMAL) Colonoscopy (09/07/2022) Colonoscopy Abnormal( A) Normal Comment:Repeat in 5 years us Chino Amaya MD HEALTH MAINTENANCE Final Result from Last 3 Months or Most Recently Relevant to Health Maintenance Insurance [facility] PPO Care Teams River Boat Captain Relationship Specialty Start Date End Date Chelsea Randhawa MD [address] [place] [id number] PCP - General Family Medicine 11/25/16
--- OUTSIDE RECORDS SUMMARY | 2024-10-15 11:53 | XMS_ITS | Patient Health Record ---
Author Organization [facility] Address [address] [place] [address] Care Team Providers Care Shell Sorter Name Role Phone Chelsea Randhawa MD Primary Care Provider Chino Parrish [phone] Allergies Allergen (clinical drug ingredient) Drug/Non Drug [...] Problem Status W/U Status Risk Notes Problem 062484255 Encounter for screening for malignant neoplasm of colon (Z12.11) Active confirmed Problem Diverticulosis o f large intestine without perforation or abscess without bleeding (K57.30) Active confirmed Problem 089518523 Family history o f colon cancer (Z80.0) Active confirmed Problem 797654540 Pre-procedural examination (Z01.818) Active confirmed Plan Of Treatment Future Test Test Name Order Date COLONOSCOPY 03/24/2017 COLONOSCOPY 07/02/2022 Insurance Providers Payer Name Payer Address Payer Phone Subscriber Number Group Number Insured Name Patient Relationship to Insured Coverage Start Date Coverage End Date [facility] [address] [place] [phone] [id number] SKY RAY Self - patient is the insured Medical (General) History Medical History History ICD Code Denies [place],DM,CVA,Lung disease,renal dise ase Anxiety Negative screening colonoscopy in 2017 Surgical History Surgery Date(Month/Year)
== END 2024-10-15 12:26 | disposition home or self-care (01) ==
PROVIDERS: Emergency Provider Emergency Medicine; PCP Pediatrics
DX: L50.9 Urticaria, unspecified (principal); R21 Rash and other nonspecific skin eruption
CPT/HCPCS: 99281; 99283